=== PATIENT | male | born 1945 | race Caucasian/White ===

== ENCOUNTER 2017-02-03 08:15 | Day surgery (SDC) | payer OTHER ==
[~2017-02-03 08:15] MED LIST: Lactated Ringers 1,000 ML IV SCH; Lidocaine 2% 5 ML SDV ONE; Propofol 200 MG/20 ML SDV ONE; fentaNYL 100 MCG/2 ML SDV ONE
--- NOTE | 2017-02-03 08:44 | PCM.PREANE ---
Preanesthetic Assessment - Anesthesia/Transfusion/Family Hx Anesthesia History: Prior Anesthesia Without Reaction Family History of Anesthesia Reaction: No Transfusion History: No Prior Transfusion(s) Intubation History: Unknown - Review of Systems General: No Symptoms Pulmonary: No Symptoms Cardiovascular: No Symptoms Gastrointestinal: No symptoms Neurological: No Symptoms Other: Reports: None - Physical Assessment Height: 1.85 m Weight: 114.759 kg ASA Class: 3 Mental Status: Alert & Oriented x3 Airway Class: Mallampati = 2 Dentition: Reports: Normal Dentition Thyro-Mental Finger Breadths: 3 Mouth Opening Finger Breadths: 3 ROM/Head Extension: Limited/Partial Lungs: Clear to auscultation, Normal respiratory effort Cardiovascular: Regular Rate, Regular Rhythm - Allergies Allergies/Adverse Reactions: Allergies Allergy/AdvReac Type Severity Reaction Status Date / Time No Known Allergies Allergy Verified 03/13/16 10:46 - Blood Blood Available: No - Anesthesia Plan Pre-Op Medication Ordered: None - Acknowledgements Anesthesia Type Planned: MAC Pt an Appropriate Candidate for the Planned Anesthesia: Yes Alternatives and Risks of Anesthesia Discussed w Pt/Guardian: Yes Pt/Guardian Understands and Agrees with Anesthesia Plan: Yes PreAnesthesia Questionnaire HEENT History: Reports: Glaucoma Other HEENT History: wears glasses, was told he has glaucoma but does not take any meds Cardiovascular History: Reports: High Cholesterol, Hypertension Respiratory History: Reports: None Gastrointestinal History: Reports: None Genitourinary History: Reports: Renal Calculus, Other (See Below) Other Genitourinary History: hx of renal cancer Musculoskeletal History: Reports: Fracture Other Musculoskeletal History: hx of fx left arm x2 Neurological History: Reports: Other (See Below) Other Neuro History: has tremors Psychiatric History: Reports: None Endocrine/Metabolic History: Reports: Diabetes, Type II, Obesity/BMI 30+ Hematologic History: Reports: None Immunologic History: Reports: None Oncologic (Cancer) History: Reports: Renal (h/o left renal cancer) Dermatologic History: Reports: None - Past Surgical History Head Surgeries/Procedures: Reports: None HEENT Surgical History: Reports: None Cardiovascular Surgical History: Reports: None Respiratory Surgical History: Reports: None GI Surgical History: Reports: Appendectomy Male Surgical History: Reports: Kidney Stone Extraction, Nephrectomy (05/16) , TURP-Transurethral Resection of Prostate (03/15) Endocrine Surgical History: Reports: None Neurological Surgical History: Reports: None Musculoskeletal Surgical History: Reports: None Oncologic Surgical History: Reports: Other (See Below) Other Oncologic Surgeries/Procedures: left nephrectomy, - SUBSTANCE USE Smoking Status *Q: Current Every Day Smoker Tobacco Use Within Last Twelve Months: Smokeless Tobacco Recreational Drug Use History: No - HOME MEDS Home Medications: Home Meds Lutein/Minerals/Vit A,C & E [Ocuvite] 1 tab PO DAILY 03/20/16 [History] amLODIPine [Norvasc] 1 tab PO DAILY 03/20/16 [History] atorvaSTATin Calcium [Atorvastatin Calcium] 1 tab PO DAILY 03/20/16 [History] glipiZIDE [Glucotrol] 1 tab PO DAILY 03/20/16 [History] metFORMIN HCl [Metformin HCl] 2 tab PO BID 03/20/16 [History] Insulin Glarg,Human.Rec.Analog [Lantus] 20 units SUBCUT BEDTIME 01/30/17 [ History] - CURRENT (IN HOUSE) MEDS Current Meds: Current Medications Lactated Ringer's (Ringers, Lactated) 1,000 mls @ 125 mls/hr IV ASDIRECTED HARPAL Discontinued Medications Fentanyl (Sublimaze) Confirm Administered Dose 100 mcg .ROUTE .STK-MED ONE Stop: 02/03/17 07:15 Lidocaine (Xylocaine-Mpf 2%) Confirm Administered Dose 5 ml .ROUTE .STK-MED ONE Stop: 02/03/17 07:14 Propofol (Diprivan 20 Ml) Confirm Administered Dose 400 mg .ROUTE .STK-MED ONE Stop: 02/03/17 07:15
[2017-02-03] MEDS ORDERED: ePHEDrine 50 MG/ML SDV ONE (09:38)
[2017-02-03] MEDS ORDERED: Phenylephrine/Normal Saline 100 MCG/ML 10 ML Syringe ONE (09:41)
--- NOTE | 2017-02-03 10:01 | PCM.OPNOTE ---
- General Post-Op/Procedure Note Date of Surgery/Procedure: 02/03/17 Operative Procedure(s): colonoscopy Findings: see dict [id number] Pre Op Diagnosis: scrn colonoscope Post-Op Diagnosis: hemorrhoid Anesthesia Technique: Moderate sedation Primary Surgeon: Henrique Watt Complications: None Condition: Good
--- NOTE | 2017-02-03 10:34 | OR ---
SURGEON: Henrique Watt MD DATE OF PROCEDURE: 02/03/2017 PREOPERATIVE DIAGNOSIS: Screening colonoscopy. POSTOPERATIVE DIAGNOSIS: Hemorrhoids. PROCEDURE PERFORMED: Colonoscopy. COMPLICATIONS: None. FINDINGS: 1. The patient is easily sedated with LIVING ADVISOR and Diprivan. The patient is soundly snoring. 2. The patient's colon rather straight forward and colon indicated by ileocecal fold, one-to-one indentation, and appendix orifice. Light immittance is not observed. Mucosa examined upon scope pulling out and the patient does not have any diverticulosis, polyp, mass, inflammation, stricture, growth, ulceration, or bleeding. 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 The patient would benefit from repeat colonoscopy 10 years from today or if clinically indicated otherwise. DESCRIPTION OF PROCEDURE: The patient was taken to the endoscopy room. A time out was called, patient identified, and procedure identified. Diprivan was then administrated. Patient went from awake to sleep, hearing doctor talking or door closing is normal. Perineum inspection and digital examination were then performed. A well- lubricated colonoscope was gently inserted through the rectum, advanced past the rectosigmoid junction, the descending colon, splenic flexure, transverse colon, hepatic flexure, ascending colon, arrived to the cecum. Cecum was identified as dictated in the finding. Then the scope was carefully withdrawn while attention was paid to the mucosal surface for any abnormality. Air will be sucked out during the scope withdrawal. At the rectum, retroflexed to examine any rectal diseases, fistula or hemorrhoids. Patient tolerated procedure well. There were no intraoperative complications, and Dr. Watt was present throughout the whole procedure. ALEJANDRINA / OTTO /[id number]
[2017-02-03 10:47] VITALS: BP 118/72
--- NOTE | 2017-02-03 10:47 | PCM.POSTAN ---
POST ANESTHESIA ASSESSMENT - MENTAL STATUS Mental Status: alert, oriented - RESPIRATORY Respiratory Status: respiratory rate WNL, airway patent, O2 saturation stable - CARDIOVASCULAR CV Status: pulse rate WNL, blood pressure stable - GASTROINTESTINAL GI Status: no symptoms - POST OP HYDRATION Hydration Status: adequate & stable - OBSERVATIONS Free Text/Narrative:: no anesthesia problems
== END 2017-02-03 11:05 | disposition home or self-care (01) ==
LOC: MW.SDS 08:15
PROVIDERS: ATTEND Surgery
DX: Z12.11 Encounter for screening for malignant neoplasm of colon (principal); K64.9 Unspecified hemorrhoids; E78.00 Pure hypercholesterolemia, unspecified; I10 Essential (primary) hypertension; E11.9 Type 2 diabetes mellitus without complications; E66.9 Obesity, unspecified; F17.210 Nicotine dependence, cigarettes, uncomplicated; Z85.528 Personal history of other malignant neoplasm of kidney; Z68.30 Body mass index [BMI] 30.0-30.9, adult; Z87.442 Personal history of urinary calculi; Z90.49 Acquired absence of other specified parts of digestive tract; Z90.5 Acquired absence of kidney; Z79.4 Long term (current) use of insulin; Z79.899 Other long term (current) drug therapy
CPT/HCPCS: 45378; 82962; J3010; J7120; 00810; J2704

== ENCOUNTER 2023-06-03 06:22 | Inpatient (IN) | payer OTHER ==
[~2023-06-03 06:22] MED LIST changes: +Famotidine 20 MG/2 ML SDV IVPUSH SCH; -Lidocaine 2% 5 ML SDV ONE; -Propofol 200 MG/20 ML SDV ONE; -fentaNYL 100 MCG/2 ML SDV ONE
[2023-06-03] MEDS ORDERED: Ropivacaine 49.25 ML, Ketorolac 30 MG, EPINEPHrine 0.5 MG, cloNIDine 80 MCG in Sodium C... INJECT SCH (07:00)
[2023-06-03] MEDS ORDERED: Tranexamic Acid IN NACL,ISO-OS 1,000 MG in Premix Bag 1 BAG IV SCH ×2 (07:00)
[2023-06-03] MEDS ORDERED: Albuterol 0.083% 2.5 MG/3 ML Neb Soln NEB PRN (07:03)
[2023-06-03] MEDS ORDERED: droPERidol 5 MG/2 ML SDV IVPUSH PRN (07:03)
[2023-06-03] MEDS ORDERED: Morphine 2 MG/ML SYRINGE IVPUSH PRN ×2 (07:03→11:07)
[2023-06-03] MEDS ORDERED: fentaNYL 50 MCG/ML SDV IVPUSH PRN (07:03)
[2023-06-03] MEDS ORDERED: Naloxone 0.4 MG/ML SDV IVPUSH PRN (07:03)
[2023-06-03] MEDS ORDERED: Metoclopramide 10 MG/2 ML SDV IVPUSH PRN (07:03)
[2023-06-03] MEDS ORDERED: Ondansetron 4 MG/2 ML SDV IVPUSH PRN ×2 (07:03→11:07)
[2023-06-03] MEDS ORDERED: HYDROmorphone 1 MG/ML Syringe IVPUSH PRN (07:03)
[2023-06-03] MEDS ORDERED: Famotidine 20 MG/2 ML SDV ONE (07:10)
[2023-06-03] MEDS ORDERED: fentaNYL 100 MCG/2 ML SDV ONE (07:28)
[2023-06-03] MEDS ORDERED: propofoL 50 ML ONE ×2 (07:28→09:50)
[2023-06-03] MEDS ORDERED: Ropivacaine 0.5% 5 MG/ML 30 ML SDV ONE (07:30)
[2023-06-03] MEDS ORDERED: Lidocaine 2% 5 ML SDV ONE (08:00)
[2023-06-03] MEDS ORDERED: Ketamine 500 mg/10 ML MDV ONE (08:07)
[2023-06-03] MEDS ORDERED: Glycopyrrolate 0.2 MG/ML SDV ONE (08:38)
[2023-06-03] MEDS ORDERED: Tranexamic Acid 1,000 MG/10 ML Vial ONE (08:38)
[2023-06-03] MEDS ORDERED: cefOXitin 1 GM Vial ONE (08:38)
[2023-06-03] MEDS ORDERED: ceFAZolin 2 GM Vial ONE (08:38)
[2023-06-03] MEDS ORDERED: ePHEDrine 50 MG/ML SDV ONE (08:38)
[2023-06-03] MEDS ORDERED: Phenylephrine HCl 0.5 MG/5 ML AMP ONE (08:38)
[2023-06-03] MEDS ORDERED: Water For Injection, Sterile 40 ML ONE (08:41)
[2023-06-03] MEDS ORDERED: EPINEPHrine 1 MG/1 ML Amp ONE (08:41)
[2023-06-03] MEDS ORDERED: Propofol 200 MG/20 ML SDV ONE (09:41)
[2023-06-03] MEDS ORDERED: Lidocaine 2% 11 ML Jelly Filled Syringe ONE (09:54)
[2023-06-03] MEDS ORDERED: Sodium Chloride 0.9% 10 ML Syringe FLUSH PRN (11:07)
[2023-06-03] MEDS ORDERED: Sodium Chloride 0.9% 2.5 ML Syringe FLUSH PRN (11:07)
[2023-06-03] MEDS ORDERED: Aluminum Hydroxide/Magnesium Hydroxide/Simethicone XS Susp 30 ML Cup PO PRN (11:07)
[2023-06-03] MEDS ORDERED: traMADol 50 MG Tab PO PRN (11:07)
[2023-06-03] MEDS ORDERED: diphenhydrAMINE 25 MG Cap PO PRN (11:07)
[2023-06-03] MEDS ORDERED: INSULIN REGULAR HUMAN 100 UNIT/ML SUBCUT SCH (12:15)
[2023-06-03] MEDS ORDERED: [UNRECOGNIZED DRUG - OTHER] SUBCUT SCH (12:15)
[2023-06-03 12:53] LABS: HEMATOCRIT 35.6 % (42.0-52.0); HEMOGLOBIN 11.8 g/dL (14.0-18.0); MEAN CORPUSCULAR HGB CONC 33.1 g/dL (32.0-36.0); MEAN CORPUSCULAR VOLUME 93.4 fL (83.0-99.0); MEAN PLATELET VOLUME 12.3 fL (9.4-12.4); PLATELET COUNT,PLT 148 K/uL (150-400); RED BLOOD CELL COUNT 3.81 M/uL (4.52-5.90); WHITE BLOOD CELL COUNT,WBC 17.95 K/uL (3.9-11.3)
[2023-06-03] MEDS: Acetaminophen 325 MG Tab PO SCH ×4 (13:05→23:59)
[2023-06-03 13:12] LABS: CALCIUM 7.9 mg/dL (8.5-10.1); CARBON DIOXIDE,CO2 22.4 mmol/L (21.0-32.0); CREATININE 1.7 mg/dL (0.8-1.3); EST CRCL DRUG DOSING (CG) 41.78 mL/min; MAGNESIUM 1.6 mg/dL (1.8-2.4); POTASSIUM,K 4.3 mmol/L (3.5-5.1)
[2023-06-03 13:25] LABS: LYMPHOCYTES ABSOLUTE MAN 1.8 (0.6-2.4); LYMPHOCYTES PERCENT MAN 10 % (16.0-40.0); MONOCYTES ABSOLUTE MAN 1.4 (0.0-0.8); MONOCYTES PERCENT MAN 8 % (0.0-15.0); SEG NEUTROPHILS ABSOLUTE MAN 14.7 (1.4-5.7); SEG NEUTROPHILS PERCENT MAN 82 % (48.0-80.0)
[2023-06-03] MEDS: oxyCODONE 5 MG Tab PO PRN (13:46)
[2023-06-03] MEDS: ceFAZolin 2 GM in Sodium Chloride 0.9% 50 ML IV SCH (15:29)
[2023-06-03] MEDS ORDERED: 50% Dextrose in Water 50 ML Syringe IVPUSH PRN (16:15)
[2023-06-03] MEDS ORDERED: Glucagon,Human Recombinant 1 MG Vial IM PRN (16:15)
[2023-06-03] MEDS: Insulin Aspart 100 Units/ML 3 ML Pen SUBCUT SCH ×2 (16:59→17:01)
[2023-06-03] MEDS: Metoprolol Succinate 25 MG Tab.ER PO SCH (20:53)
[2023-06-03] MEDS: atorvaSTATin 40 MG Tab PO SCH (20:54)
[2023-06-03] MEDS: Docusate Sodium 100 MG Cap PO SCH (20:54)
[2023-06-03] MEDS: Aspirin 325 MG Tab PO SCH (21:02)
[2023-06-03] MEDS: Insulin Glargine,Hum.Rec.Anlog 100 UNIT/ML 3 ML Pen SUBCUT SCH (21:56)
[2023-06-04] MEDS: ceFAZolin 2 GM in Sodium Chloride 0.9% 50 ML IV SCH ×2
[2023-06-04] MEDS: Acetaminophen 325 MG Tab PO SCH ×6 (04:29→20:56)
[2023-06-04 06:27] LABS: HEMATOCRIT 31.2 % (42.0-52.0); HEMOGLOBIN 10.5 g/dL (14.0-18.0)
[2023-06-04 06:46] LABS: CARBON DIOXIDE,CO2 24.4 mmol/L (21.0-32.0); CREATININE 1.6 mg/dL (0.8-1.3); EST CRCL DRUG DOSING (CG) 44.39 mL/min; MAGNESIUM 1.7 mg/dL (1.8-2.4); POTASSIUM,K 4.3 mmol/L (3.5-5.1)
[2023-06-04] MEDS: Insulin Aspart 100 Units/ML 3 ML Pen SUBCUT SCH ×6 (07:30→18:47)
[2023-06-04 08:06] LABS: MEAN CORPUSCULAR HEMOGLOBIN 31.2 pg (28.0-32.0); MEAN CORPUSCULAR HGB CONC 33.5 g/dL (32.0-36.0); MEAN PLATELET VOLUME 13.2 fL (9.4-12.4); PLATELET COUNT,PLT 127 K/uL (150-400); RED BLOOD CELL COUNT 3.43 M/uL (4.52-5.90); WHITE BLOOD CELL COUNT,WBC 13.89 K/uL (3.9-11.3)
[2023-06-04 08:08] LABS: HEMATOCRIT 31.2 % (42.0-52.0); HEMOGLOBIN 10.5 g/dL (14.0-18.0)
[2023-06-04] MEDS: Docusate Sodium 100 MG Cap PO SCH ×2 (08:43→20:55)
[2023-06-04] MEDS: Aspirin 325 MG Tab PO SCH (08:46)
[2023-06-04] MEDS: Polyethylene Glycol 3350 Powder 17 GM Packet PO SCH (08:48)
[2023-06-04] MEDS: Metoprolol Succinate 25 MG Tab.ER PO SCH (20:55)
[2023-06-04] MEDS: atorvaSTATin 40 MG Tab PO SCH (20:56)
[2023-06-04] MEDS: Insulin Glargine,Hum.Rec.Anlog 100 UNIT/ML 3 ML Pen SUBCUT SCH (21:05)
[2023-06-04] MEDS ORDERED: Acetaminophen 325 MG Tab PO PRN (21:32)
[2023-06-05 06:49] LABS: HEMATOCRIT 31.3 % (42.0-52.0); HEMOGLOBIN 10.6 g/dL (14.0-18.0)
[2023-06-05] MEDS: Insulin Aspart 100 Units/ML 3 ML Pen SUBCUT SCH ×6 (07:41→17:13)
[2023-06-05] MEDS: Polyethylene Glycol 3350 Powder 17 GM Packet PO SCH (09:13)
[2023-06-05] MEDS: Aspirin 325 MG Tab PO SCH (09:15)
[2023-06-05] MEDS: Docusate Sodium 100 MG Cap PO SCH ×2 (09:15→20:56)
[2023-06-05] MEDS: oxyCODONE 5 MG Tab PO PRN (09:26)
[2023-06-05] MEDS: Metoprolol Succinate 25 MG Tab.ER PO SCH (20:52)
[2023-06-05] MEDS: atorvaSTATin 40 MG Tab PO SCH (20:56)
[2023-06-05] MEDS: Insulin Glargine,Hum.Rec.Anlog 100 UNIT/ML 3 ML Pen SUBCUT SCH (20:59)
[2023-06-06] MEDS: oxyCODONE 5 MG Tab PO PRN ×2 (04:33→08:50)
[2023-06-06] MEDS: Insulin Aspart 100 Units/ML 3 ML Pen SUBCUT SCH ×4 (08:22→12:39)
[2023-06-06] MEDS: Docusate Sodium 100 MG Cap PO SCH (08:50)
[2023-06-06] MEDS: Aspirin 325 MG Tab PO SCH (08:50)
[2023-06-06] MEDS: Polyethylene Glycol 3350 Powder 17 GM Packet PO SCH (08:52)
[2023-06-06 14:19] VITALS: BP 120/100; PULSE 87
== END 2023-06-06 14:10 | disposition home or self-care (01) | DRG 554 ==
LOC: MW.SDS 06:22 → EDSTATUS 10:30 → MW.MS 12:06 → MW.SDS 13:37 → MW.MS 13:38
PROVIDERS: ADMIT Orthopaedic Surgery; ATTEND Orthopaedic Surgery
PROC: 0SRB0JA Replacement of Left Hip Joint with Synthetic Substitute, Uncemented, Open Approach (ICD-10-PCS; principal; 2023-06-03)
DX: M16.12 Unilateral primary osteoarthritis, left hip (principal); M25.752 Osteophyte, left hip; M94.8X8 Other specified disorders of cartilage, other site; I12.9 Hypertensive chronic kidney disease with stage 1 through stage 4 chronic kidney disease, or unspecified chronic kidney disease; E11.22 Type 2 diabetes mellitus with diabetic chronic kidney disease; N18.9 Chronic kidney disease, unspecified; E78.2 Mixed hyperlipidemia; I95.1 Orthostatic hypotension; E78.5 Hyperlipidemia, unspecified; Z90.89 Acquired absence of other organs; Z90.49 Acquired absence of other specified parts of digestive tract; Z98.890 Other specified postprocedural states; Z68.37 Body mass index [BMI] 37.0-37.9, adult; E66.9 Obesity, unspecified; F17.220 Nicotine dependence, chewing tobacco, uncomplicated; Z79.4 Long term (current) use of insulin; Z87.442 Personal history of urinary calculi; Z87.81 Personal history of (healed) traumatic fracture; Z85.53 Personal history of malignant neoplasm of renal pelvis; Z79.899 Other long term (current) drug therapy; Z90.5 Acquired absence of kidney
CPT/HCPCS: 27130; 36415; 73501; 80048; 83735; 85025; 86850; 86900; 86901; A9270 ×2; C1713 ×3; C1776 ×4; J0131; J0171 ×2; J0690; J0694; J0735; J1885; J2371; J2704 ×3; J2795 ×2; J3010; J3490 ×4; J7030; J7120; 01214; 82947; 85014; 85018; 85027; 97110-GP; 97163-GP; 97530-GP; 99100; J1815-GY; J2270